=== PATIENT | female | born 1985 | race Caucasian/White ===

== ENCOUNTER 2017-01-31 19:25 | Emergency (ER) | payer MEDICAID, OTHER ==
[~2017-01-31] VITALS: Ht 162.6 cm; Wt 65.0 kg
[2017-01-31 19:26] VITALS: BP 135/83; PULSE 60; RESP 16; TEMP 97.9; O2SAT 99
--- NOTE | 2017-01-31 20:54 | PD ---
HPI Chief Complaint: Injury Time Seen by Provider: 20:52 Travel History International Travel<30 days: No Contact w/Intl Traveler<30days: No Traveled to known affect area: No History of Present Illness HPI Patient comes in complaining of left ankle pain that began shortly prior to arrival. Patient states that she was playing running up and down stairs when she tripped injuring her left ankle. Patient describes pain as aching throbbing like in lateral aspect left ankle. Pain radiates proximally is worse with palpation and walking. Patient denies doing anything for this prior coming to the emergency department. Denies any numbness or tingling. PFSH Past Medical History Seizures: Yes Social History Alcohol Use: No Tobacco Use: No Substance Use: No (reformed) Allergies-Medications (Allergen,Severity, Reaction): Coded Allergies: Sulfa (Verified Allergy, Severe, 01/31/17) Penicillin (Verified Allergy, Unknown, 01/31/17) Reported Meds & Prescriptions Reported Meds & Active Scripts Active Naprosyn (Naproxen) 500 Mg Tab 500 Mg PO Q12HR PRN Review of Systems Except as stated in HPI: all other systems reviewed are Neg Physical Exam Narrative GENERAL: Well-developed, overly nourished, in no acute distress, and non-ill appearing. SKIN: Warm and dry. HEAD: Atraumatic. Normocephalic. EYES: Pupils equal and round. EOMI. No scleral icterus. No injection or drainage. ENT: No nasal bleeding or discharge. Mucous membranes pink and moist. NECK: Trachea midline. Supple. No nuclear rigidity. CARDIOVASCULAR: Dorsal pulses 2+, intact, and equal bilaterally. Capillary refill less than 2 seconds RESPIRATORY: No accessory muscle use. No respiratory distress. MUSCULOSKELETAL: No obvious deformities. No clubbing. No cyanosis. Soft tissue swelling noted left lateral ankle. Decreased range of motion left ankle secondary to pain. Ankle: Neagative anterior draw and Avendano test. Negative Robin's sign. No laxity noted with passive inversion and eversion of BL ankles. Negative squeeze test. Pulses equal BL distal to injury. Capillary refill less than 2 seconds distal to injury and equal BL. Sensation equal BL 1st web space. FROM of toes distal to injury and equal BL. NV intact distal to injury and equal BL. Dorsal pulses equal BL. Patient reports tenderness palpation lateral aspect left ankle. NEUROLOGICAL: Awake and alert. No obvious cranial nerve deficits. Motor grossly within normal limits. Normal speech. PSYCHIATRIC: Appropriate mood and affect; insight and judgment normal. Data Data Last Documented VS Vital Signs Date Time Temp Pulse Resp B/P Pulse Ox O2 Delivery O2 Flow Rate FiO2 01/31/17 19:26 97.9 60 16 135/83 99 Room Air Orders Ankle, Complete ([id number]) (01/31/17 ) Ice/Cold Pack (01/31/17 20:41) Naproxen (Naprosyn) (01/31/17 21:00) Splint Or Brace Apply/Monitor (01/31/17 21:02) Brace Ankle Stirrup (01/31/17 ) MDM Medical Decision Making Medical Screen Exam Complete: Yes Emergency Medical Condition: Yes Differential Diagnosis Fracture, sprain, contusion other Narrative Course There is no clinical evidence for fracture. There is no clinical evidence to suspect bony injury by exam. Radiographic examination revealed no fracture seen at this time. No obvious ligamental injury or internal derangement is noted at this time. The distal extremity appears neurovascularly intact, without evidence of neurovascular injury nor compartment syndrome. Tendon exam also was intact. The effected limb was splinted. The patient was discharged on pain medication along with sprain and splint care instructions and given warnings for vascular compromise. The patient is to follow up with Orthopedics. The patient agrees with plan. Patient in no obvious distress upon re-evaluation. All pertinent Radiology result(s) discussed with patient. Patient was asked if they wanted to speak to my attending, which the patient did not wish to do at this time. Any questions/ concerns in reference to patient diagnosis/condition discussed and clarified prior to patient's discharge. Reinforced sheer importance of close follow up with patient's primary physician or primary care clinic and/or orthopedics. Instructed patient to return to ED immediately, if symptoms return/worsen. Pt showed understanding of above instructions. Further instructions and recommendations were detailed in discharge paperwork. Pt ambulated without difficulty out of ED at discharge. Diagnosis Primary Impression: Left ankle sprain Qualified Code: S93.402A - Sprain of left ankle, unspecified ligament, initial encounter Referrals: Junior Sandoval MD Patient Instructions: Ankle Sprain (ED), Ankle Stirrup Splint (ED), Crutch Instructions (ED), General Instructions Additional Instructions: Follow-up with your primary care physician and/or orthopedic in 2-3 days for reevaluation. Take all medication as prescribed. Apply ice to affected area 20 minutes prior as needed for pain. Return to the emergency department if symptoms get worse. Med/Other Pt SpecificInfo: Prescription(s) given Scripts Naproxen (Naprosyn)500 Mg Ooj054 Mg PO Q12HR PRN (PAIN SCALE 1 TO 10) #14 TAB Ref 0 Prov:Olivia Miranda MD 01/31/17 Disposition: 01 DISCHARGE HOME Condition: Stable Cristofer Leon Jan 31, 2017 20:54
[2017-01-31] MEDS ORDERED: NAPROXEN 500 MG TAB PO ONE (21:00)
--- NOTE | 2017-01-31 21:09 | RADRPT ---
EXAM DATE/TIME: 01/31/2017 20:44 [facility] COMPARISON: No previous studies available for comparison. INDICATIONS : Fall down steps. Left ankle pain. MEDICAL HISTORY : None. SURGICAL HISTORY : None. ENCOUNTER: Initial ACUITY: 1 day PAIN SCORE: 7/10 LOCATION: Left lateral FINDINGS: Three view exam was performed of the left ankle. The bony structures are in normal alignment. No ev idence of fracture, dislocation, or soft tissue swelling. The ankle mortise is intact. No radiopaqu e foreign bodies are seen. Bony mineralization is normal. CONCLUSION: Unremarkable examination of the left ankle. Chuy Aguirre MD on January 31, 2017 at 21:06 Board Certified Radiologist. This report was verified electronically.
[2017-01-31] MEDS ORDERED: NAPR500 PO (21:20)
== END 2017-01-31 21:55 | disposition home or self-care (01) ==
LOC: NEPB 19:25
DX: S93.402A Sprain of unspecified ligament of left ankle, initial encounter (principal); W18.09XA Striking against other object with subsequent fall, initial encounter; Y93.02 Activity, running; Y92.89 Other specified places as the place of occurrence of the external cause
CPT/HCPCS: 73610; 99283; E0113; L1906